=== PATIENT | male | born 1985 | race Asian ===

== ENCOUNTER 2021-04-18 12:17 | Outpatient (REF) | payer OTHER, SELFPAY ==
[2021-04-18 14:01] LABS: Alanine Aminotransferase 32 U/L (0-40); Albumin Level 4.3 g/dL (3.5-5.0); Alkaline Phosphatase 62 U/L (39-117); Anion Gap 13 (12-20); Aspartate Amino Transferase 22 U/L (5-37); Bilirubin Total 0.7 mg/dL (0.0-1.0); Blood Urea Nitrogen 9 mg/dL (9-16); Calcium 9.4 mg/dL (8.4-10.2); Carbon Dioxide 26 mmol/L (22-29); Chloride 106 mmol/L (96-108); Cholesterol 196 mg/dL; Estimated Glomerular Filt Rate > 60; Glucose Fasting 92 mg/dL (60-99); HDL Cholesterol 46 mg/dL; LDL Cholesterol Calculated 98 mg/dl; Potassium 3.8 mmol/L (3.3-5.1); Sodium 141 mmol/L (135-145); Total Protein 7.4 g/dL (6.5-8.0); Triglycerides 262 mg/dL; Uric Acid 6.5 mg/dL (3.4-7.0)
[2021-04-18 14:21] LABS: TSH reflex Free T4 2.52 uIU/mL (0.32-4.0)
== END 2021-04-18 12:18 | disposition home or self-care (01) ==
LOC: HO.WFDLDS 12:17
PROVIDERS: PCP Family Medicine; Visit Provider Family Medicine
DX: Z00.00 Encounter for general adult medical examination without abnormal findings (principal)
CPT/HCPCS: 36415; 80053; 80061; 84443; 84550

== ENCOUNTER 2021-09-14 13:26 | Outpatient (REF) | payer OTHER, SELFPAY ==
[2021-09-14 19:41] LABS: Influenza A PCR NEGATIVE (Negative); Influenza B PCR NEGATIVE (Negative); Resp Syncy Virus RNA Qual PCR NEGATIVE (Negative); SARS COV2 PCR INHOUSE NEGATIVE (Negative)
== END 2021-09-14 13:27 | disposition home or self-care (01) ==
LOC: HO.LAB 13:26
PROVIDERS: Visit Provider Family Medicine
DX: J02.9 Acute pharyngitis, unspecified (principal); Z20.822 Contact with and (suspected) exposure to COVID-19
CPT/HCPCS: 0241U; 36415

== ENCOUNTER 2021-09-26 09:10 | Outpatient (REF) | payer OTHER, SELFPAY ==
--- NOTE | ~2021-09-26 | XR_ITS ---
EXAMINATION: XR SHOULDER, RIGHT CLINICAL INFORMATION: Pain in right shoulder. COMPARISON: None TECHNIQUE: AP external rotation, Grashey, scapular Y, and axillary views of the right shoulder. FINDINGS: The bones and soft tissues are normal. No fracture. Glenohumeral and acromioclavicular alignment is anatomic with normal joint space. No abnormal soft tissue calcifications. XR/XR shoulder RT min 2V IMPRESSION: Normal right shoulder.
--- NOTE | ~2021-09-26 | XR_ITS ---
EXAMINATION: XR CERVICAL SPINE CLINICAL INFORMATION: Radiculopathy, site unspecified. COMPARISON: None TECHNIQUE: AP, lateral, and odontoid views of the cervical spine are obtained. FINDINGS: There is no acute fracture or subluxation. There are small marginal osteophytes at C4-C5, C5-C6, and C6-C7. There is mild disc space narrowing at C5-C6 and a slight reversal of the normal cervical lordosis at this level. The facet joints are unremarkable. XR/XR cervical spine 2V IMPRESSION: Mild degenerative disc disease at C5-C6 and minimal degenerative changes at C4-C5 and C6-C7.
== END 2021-09-26 09:11 | disposition home or self-care (01) ==
LOC: HO.XRAY 09:10
PROVIDERS: Visit Provider Family Medicine
DX: M54.10 Radiculopathy, site unspecified (principal); M25.511 Pain in right shoulder
CPT/HCPCS: 72040; 73030

== ENCOUNTER 2021-10-17 10:00 | Outpatient (RCR) | payer OTHER, SELFPAY ==
--- NOTE | 2021-10-03 15:13 | MHC.PT.EP ---
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 Pt WAS SEEN BY MD/WATCH REPAIR PERSON WAS OOW FOR SHORT TIME THEN RTW WITH RE-IJURY AT THE BEGINNING OF SEPTEMBER. WAS KEPT OOW AND CHANGED MED AND THEN SENT BACK LIGHT DUTY (CURRENTLY LIGHT DUTY). Pt ALSO HAS A SPECIAL NEEDS 5 YO SON AT HOME THAT HE CARES FOR (LIFTING ETC). PRESENTS TO PT WITH GOOD OVERALL CERVICAL AND R SHLDER ROM (SOME DISCOMFORT END RANGES) WITH SLIGHT DECREASE IN R SHLDER ABD STRENGTH. INITIAL SXS REPORTED OF R UE PARESTHESIA AND SOME DECREASED STRENGTH BUT THESE SXS SEEM TO BE RESOLVING. Pt WITH POOR POSTURE. SHOULD BENFIT FROM PT TO ADDRESS THESE ISSUES WITH HOME PROG/ED AND ST WORK Frequency and Duration: The patient will be seen 2X/WK X 6 WKS Short Term Goals: 1. INCREASED POSTURE AWARENESS AND AWARENESS NECK AND SHLDER CARE 2. NO UE PARESTHESIA R 3. Pt TO DEMONSTRATE 2-3 TASKS WITH PROPER BODY MECH (FOR WORK AND FOR CARE FOR HIS SON) 4. RTW FULL DUTY Jail Goals: 1. I HEP WITH DC EX PLAN 2. DECREASED NECK AND SHLDER PAIN AT LEAST 50% WITH ADLS Treatment Plan: Modalities to reduce pain, spasms and effusion. Manual therapy to restore motion and function. Therapeutic exercise to improve strength and flexibility. Neuromuscular re-education for posture and balance. Therapeutic activities to return to functional activities of daily living. Electronically signed by: DIA MALIK PT Please sign and return to therapist. Thank you for your referral.
--- NOTE | 2021-12-19 09:06 | MHC.PT.DC ---
[facility] [place] Office [place] Office [place] Office [address] Paco Jimenes [address] [phone] F: [phone] F: [phone] F: [phone] F: [phone] Physical Therapy Discharge Report Diagnosis: PAIN IN R SHOULDER Date of Surgery: NA Date of Evaluation: 10/03/21 Date of Discharge: 12/19/21 Treatments to Date: 2 Cancellations to Date: No Shows to Date: Discharge Status: Visit Non-compliance Discharge Summary: Pt SEEN FOR INIT EVAL, THEN NO SHOW, THEN 1 FU VISIT (PER ASSESSMENT FROM THAT DAY..POOR POSTURE, PROGRESSING WITH TIME. REPORTS MAY JOIN GYM (Pt REPORTS HE HAS GOTTEN LAZY WITH WORK SCHEDULE)). THEN CANCELS. WILL DC PER ATTENDANCE POLICY Electronically signed by: DIA MALIK PT Please sign and return to therapist. Thank you for your referral.
== END 2021-12-19 09:06 | disposition home or self-care (01) ==
LOC: HO.PTWFD 10:00
PROVIDERS: Visit Provider Family Medicine
DX: M25.511 Pain in right shoulder (principal)
CPT/HCPCS: 97110; 97162; 97535

== ENCOUNTER 2022-08-21 08:43 | Outpatient (REF) | payer OTHER, SELFPAY ==
[2022-08-21 11:35] LABS: Hemoglobin 14.4 g/dl (14.0-18.0); Mean Corpuscular HGB Conc 33.5 g/dl (31.0-36.0); Mean Corpuscular Volume 86.5 fL (80.0-98.0); Mean Platelet Volume 9.5 fL (9.4-12.4); Platelet Count 196 X10*3/uL (160-400); Red Blood Count 4.97 X10*6/uL (4.60-5.80); Red Cell Distribution Width 12.4 % (11.0-16.0); White Blood Count 6.1 X10*3/uL (4.8-10.8)
[2022-08-21 13:01] LABS: HDL Cholesterol 51 mg/dL
[2022-08-21 13:04] LABS: Alanine Aminotransferase 35 U/L (0-40); Albumin Level 4.2 g/dL (3.5-5.0); Alkaline Phosphatase 61 U/L (39-117); Anion Gap 15 (12-20); Aspartate Amino Transferase 29 U/L (5-37); Bilirubin Total 0.8 mg/dL (0.0-1.0); Blood Urea Nitrogen 12 mg/dL (9-16); Carbon Dioxide 25 mmol/L (22-29); Chloride 105 mmol/L (96-108); Cholesterol 207 mg/dL; Estimated Glomerular Filt Rate > 60; Glucose Fasting 103 mg/dL (60-99); LDL Cholesterol Calculated 108 mg/dl; Sodium 141 mmol/L (135-145); TSH reflex Free T4 3.38 uIU/mL (0.32-4.0); Total Protein 7.3 g/dL (6.5-8.0); Triglycerides 243 mg/dL
== END 2022-08-21 08:44 | disposition home or self-care (01) ==
LOC: HO.WFDLDS 08:43
PROVIDERS: Visit Provider Hospitalist
DX: Z00.00 Encounter for general adult medical examination without abnormal findings (principal)
CPT/HCPCS: 36415; 80053; 80061; 84443; 85027

== ENCOUNTER 2022-10-24 14:18 | Outpatient (REF) | payer OTHER, SELFPAY ==
--- NOTE | ~2022-10-24 | XR_ITS ---
EXAMINATION: XR CHEST CLINICAL INFORMATION: Inconsistent utilization and safety counseling. COMPARISON: None TECHNIQUE: 2 views of the chest were obtained. FINDINGS: No significant abnormality is noted involving the heart, lungs, mediastinum, bony thorax or soft tissues. XR/XR chest 2V IMPRESSION: Unremarkable chest examination.
[2022-10-25 08:44] LABS: HBS Num1 > 1000.00 mIU/mL (0-7.99); HBsAGNum1 0.37 S/CO (0.00-0.99); Hepatitis B Core Antibody Nonreactive (Nonreactive); Hepatitis B Surface Antigen Negative (Negative); ~HepC Num1 0.08 S/CO (0.00-0.79); ~Hepatitis B Surface Antibody REACTIVE (Nonreactive); ~Hepatitis C Antibody Nonreactive (Nonreactive)
[2022-10-26 04:49] LABS: Rubeola IgG (Measles) >300.00 AU/mL
[2022-10-27 18:58] LABS: TS Negative Control Passed; TS Panel A 0; TS Panel B 1; TS Positive Control Passed; TSpotTB Negative (Negative)
== END 2022-10-24 14:19 | disposition home or self-care (01) ==
LOC: HO.LAB 14:18
PROVIDERS: PCP Family Medicine; Visit Provider Family Medicine
DX: Z01.84 Encounter for antibody response examination (principal); Z11.1 Encounter for screening for respiratory tuberculosis; Z11.3 Encounter for screening for infections with a predominantly sexual mode of transmission
CPT/HCPCS: 36415; 71046; 86481; 86704; 86706; 86735; 86762; 86765; 86787; 86803; 87340